=== PATIENT | male | born 1970 | race Caucasian/White ===

== ENCOUNTER 2018-11-17 20:32 | Emergency (ER) | payer SELFPAY ==
[2018-11-17] MEDS ORDERED: NORMAL SALINE 1000 ML 1,000 ML IV ONE ×2 (21:14)
--- NOTE | 2018-11-17 21:16 | ER Document Report ---
ED General - General Chief Complaint: General Weakness Stated Complaint: WEAKNESS Time Seen by Provider: 11/17/18 21:05 Primary Care Provider: ZACHARY [facility] [Provider Group] - Follow up in 1 week [facility] [Provider Group] - Follow up in 1 week Notes: Patient is a 48-year-old male that comes to the emergency department by EMS for chief complaint of leg weakness. He states his legs have been feeling weak for the past 3 months, he is also starting to develop numbness in both legs slowly and progressively, however tonight he states that when his legs gave out he fell and landed on both knees, he states he was unable to get up for about 3 hours until his family member came home and called EMS. Other than leg weakness and pain in his legs patient denies any other symptoms including dizziness, chest pain, shortness of breath, nausea vomiting, fever/chills, back pain, incontinence. Past medical history of morbid obesity, hypertension, type 2 diabetes. He states he takes his metoprolol tartrate 50 mg "sparingly" and the rest of his medication sparingly as well because even the medications are affordable he cannot afford his doctor's appointments. TRAVEL OUTSIDE OF THE [place] IN LAST 30 DAYS: No - Related Data Allergies/Adverse Reactions: No Known Allergies Allergy (Unverified 05/03/13 00:22) Past Medical History - General Information source: Patient - Social History Smoking Status: Never Smoker Frequency of alcohol use: None Drug Abuse: None Lives with: Family Family History: None - Past Medical History Cardiac Medical History: Reports: Hx Hypertension Pulmonary Medical History: Denies: Hx Tuberculosis Endocrine Medical History: Reports: Hx Diabetes Mellitus Type 2 Past Surgical History: Reports: Hx Kidney (Renal Surgery) - stent to left kidney, Hx Orthopedic Surgery - right fingers - Immunizations Hx Diphtheria, Pertussis, Tetanus Vaccination: Yes Review of Systems - Review of Systems Constitutional: See HPI EENT: No symptoms reported Cardiovascular: No symptoms reported Respiratory: No symptoms reported Gastrointestinal: No symptoms reported Genitourinary: No symptoms reported Male Genitourinary: No symptoms reported Musculoskeletal: See HPI Skin: See HPI Hematologic/Lymphatic: No symptoms reported Neurological/Psychological: No symptoms reported Physical Exam - Vital signs Vitals: Resp BP Pulse Ox 14 160/119 H 94 11/17/18 20:48 11/17/18 20:48 11/17/18 20:48 - Notes Notes: GENERAL: Alert, interacts well. No acute distress. HEAD: Normocephalic, atraumatic. EYES: Pupils equal, round, and reactive to light. Extraocular movements intact. ENT: Oral mucosa moist, tongue midline. Oropharynx unremarkable. Airway patent. Nares patent, no nasal septal hematoma, TM's intact. NECK: Full range of motion. Supple. Trachea midline. LUNGS: Clear to auscultation bilaterally, no wheezes, rales, or rhonchi. No respiratory distress. HEART: Tachycardia, normal rhythm. No murmur ABDOMEN: Soft, non-tender. Non-distended. Bowel sounds present in all 4 quadrants. GENITOURINARY: Deferred EXTREMITIES: Moves all 4 extremities spontaneously. Small contusions over anterior proximal tibial areas and patellar areas. No open wounds. No edema, normal radial and dorsalis pedis pulses bilaterally. No cyanosis. BACK: no cervical, thoracic, lumbar midline tenderness. No saddle anesthesia, normal distal neurovascular exam. Moves all extremities in full range of motion. NEUROLOGICAL: Alert and oriented x3. Normal speech. Cranial nerves II through XII grossly intact. PSYCH: Normal affect, normal mood. SKIN: Warm, dry, normal turgor. Candidal rash over the left axillary area without induration, fluctuance, or evidence of secondary cellulitis. Course - Re-evaluation Re-evalutation: Patient is tachycardic and somewhat hypotensive but he is well-appearing. He does have bruises over both knees but he can ambulate. His lower extremity exam is unremarkable otherwise. His physical exam is unremarkable otherwise. He declines anything for pain. CBC unremarkable, chemistry shows hyperglycemia without acidosis, creatinine is borderline. Patient given 2 boluses of IV fluids. Afterwards his tachycardia did resolve. Given insulin and this is trending downwards. Urinalysis is questionable but patient has no urinary symptoms, this was cultured. Patient does have Tammi over the left axillary area, given Diflucan. Discussed with patient in detail. Patient states that he does have some medications, states he needs better primary care follow-up but he can afford, states he is having difficulty caring for his father and affording his medications because he was declined insurance. manager legal consult was placed, discussed this, discussed importance of his medications, patient states when he takes his medications his blood pressure and his blood sugar are both controlled. Patient has no headache or chest pain. He requests a walker while he is getting over the knee contusions. No fracture on x-ray. I did discuss incidental x-ray findings as well. Discussed follow-up and return precautions. Patient states satisfaction and agreement. - Vital Signs Vital signs: Temp Pulse Resp BP Pulse Ox 98.8 F 19 175/112 H 95 11/18/18 06:32 11/18/18 06:32 11/18/18 06:32 11/18/18 06:32 - Laboratory Result Diagrams: 11/17/18 21:04 11/17/18 21:04 Laboratory results interpreted by me: 11/17/18 11/17/18 11/17/18 21:04 21:04 21:04 Seg Neutrophils % 79.2 H Sodium 131.7 L Chloride 96 L Creatinine 1.31 H Est GFR (Non-Af Amer) 59 L Glucose 582 H* POC Glucose AST 77 H ALT 85 H Creatine Kinase 189 H Urine Protein Urine Glucose (UA) Urine Blood Ur Leukocyte Esterase 11/17/18 11/17/18 23:10 23:25 Seg Neutrophils % Sodium Chloride Creatinine Est GFR (Non-Af Amer) Glucose POC Glucose 397 H AST ALT Creatine Kinase Urine Protein >=500 H Urine Glucose (UA) >=500 H Urine Blood SMALL H Ur Leukocyte Esterase SMALL H Discharge - Discharge Clinical Impression: Hyperglycemia, Essential hypertension, Weakness, Tammi infection Knee injury Qualifiers: Encounter type: initial encounter Laterality: unspecified laterality Qualified Code(s): S89.90XA - Unspecified injury of unspecified lower leg, initial encounter Condition: Stable Disposition: HOME, SELF-CARE Additional Instructions: Resume your daily medications for blood pressure and diabetes. The x-ray shows an incidental fibroma but no fracture or concerning finding. Use the topical cream for the left armpit area to treat the fungal infection. Call the primary care listed for close followup for more management. We have placed a case management consult, they will be following up with you for your difficulty with prescriptions, primary care follow-up, etc. Return if you worsen including fever, spreading redness of the armpit, severe swelling or pain of the knees, vomiting, or any other concerning or worsening symptoms. Prescriptions: Clotrimazole [Antifungal] 30 gm TP ASDIR PRN #1 cream..g. PRN Reason: Walker [Folding Walker] 1 each MC ASDIR PRN #1 each PRN Reason: Referrals: [facility] [Provider Group] - Follow up in 1 week [facility] [Provider Group] - Follow up in 1 week
[2018-11-17 21:22] LABS: ABSOLUTE EOSINOPHILS # (AUTO) 0.1 10^3/uL (0.0-0.6); ABSOLUTE LYMPHOCYTES (AUTO) 1.2 10^3/uL (0.5-4.7); ABSOLUTE MONOCYTES (AUTO) 0.4 10^3/uL (0.1-1.4); ABSOLUTE NEUT (AUTO) 6.7 10^3/uL (1.7-8.2); BASOPHILS % (AUTO) 0.3 % (0-2); EOSINOPHILS % (AUTO) 1.3 % (0-6); HEMATOCRIT 46.8 % (37.9-51.0); HEMOGLOBIN 15.9 g/dL (13.5-17.0); LYMPHOCYTES % (AUTO) 13.9 % (13-45); MEAN CORPUSCULAR HEMOGLOBIN 29.8 pg (27.0-33.4); MEAN CORPUSCULAR VOLUME 88 fl (80-97); MONOCYTES % (AUTO) 5.3 % (3-13); PLATELET COUNT 204 10^3/uL (150-450); RED BLOOD COUNT 5.35 10^6/uL (4.35-5.55); SEGMENTED NEUTROPHILS % (AUTO) 79.2 % (42-78); TOTAL CELLS COUNTED % (AUTO) 100 %; WHITE BLOOD COUNT 8.4 10^3/uL (4.0-10.5)
[2018-11-17 21:34] LABS: ALANINE AMINOTRANSFERASE 85 U/L (21-72); ALBUMIN 3.7 g/dL (3.5-5.0); ALKALINE PHOSPHATASE 86 U/L (38-126); ANION GAP 12 (5-19); ASPARTATE AMINO TRANSFERASE 77 U/L (17-59); BILIRUBIN,DIRECT 0.3 mg/dL (0.0-0.4); BILIRUBIN,TOTAL 0.7 mg/dL (0.2-1.3); BLOOD UREA NITROGEN 15 mg/dL (7-20); CALCIUM 9.5 mg/dL (8.4-10.2); CARBON DIOXIDE 24 mmol/L (22-30); CHLORIDE 96 mmol/L (98-107); POTASSIUM 3.8 mmol/L (3.6-5.0); SODIUM 131.7 mmol/L (137-145)
[2018-11-17 21:41] LABS: GLUCOSE 582 mg/dL (75-110)
--- NOTE | 2018-11-17 22:26 | EKG REPORT ---
SEVERITY:- ABNORMAL ECG - SINUS TACHYCARDIA RBBB AND LAFB PROBABLE LEFT VENTRICULAR HYPERTROPHY : Confirmed by: Jose Farias 17-Nov-2018 22:25:13
--- NOTE | 2018-11-17 22:30 | RADIOLOGY REPORT (SQ) ---
EXAM DESCRIPTION: RadLex: XR KNEE 1-2 VIEWS BILATERAL Views: 2 views of each knee CLINICAL HISTORY: 48 years Male, fall, bruising, pain COMPARISON: None. FINDINGS: Left: Negative for acute fracture, dislocation, or radiopaque foreign body. Right: Negative for acute fracture, dislocation, or radiopaque foreign body. In the posterior medial cortex of the distal femoral shaft there is an area of cortical thickening/sclerosis, likely old nonossifying fibroma. No associated periosteal reaction or other suspicious malignant features. IMPRESSION 1. No acute fracture or dislocation 2. 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
[2018-11-17] MEDS ORDERED: INSULIN REG, HUMAN 100 UNIT/ML 3 ML VIAL (PYX) SUBCUT ONE (23:26)
[2018-11-17 23:32] LABS: APPEARANCE,URINE SLIGHTLY-CLOUDY; BILIRUBIN,URINE NEGATIVE (NEGATIVE); COLOR,URINE YELLOW; GLUCOSE, URINE >=500 mg/dL (NEGATIVE); KETONES,URINE NEGATIVE (NEGATIVE); LEUKOCYTE ESTERASE,URINE SMALL (NEGATIVE); NITRITE,URINE NEGATIVE (NEGATIVE); PROTEIN,URINE >=500 mg/dL (NEGATIVE); URINE SPECIFIC GRAVITY 1.026; UROBILINOGEN,URINE NEGATIVE mg/dL (<2.0)
[2018-11-18] MEDS ORDERED: FLUCONAZOLE 100 MG TABLET PO ONE (01:24)
[2018-11-18 06:46] VITALS: BP 175/112
== END 2018-11-18 06:46 | disposition home or self-care (01) ==
LOC: ER 20:32
DX: R53.1 Weakness (principal); S80.02XA Contusion of left knee, initial encounter; S80.01XA Contusion of right knee, initial encounter; W19.XXXA Unspecified fall, initial encounter; E11.65 Type 2 diabetes mellitus with hyperglycemia; B37.2 Candidiasis of skin and nail; R20.0 Anesthesia of skin; M79.604 Pain in right leg; M79.605 Pain in left leg; I10 Essential (primary) hypertension; R00.0 Tachycardia, unspecified
CPT/HCPCS: 93005; 99285; 96360; 96361; 36415; 87086; 82962; 82550; 85025; 80053; 81001; 73560; 93010; J1815; J7030

== ENCOUNTER → 2018-12-12 | Outpatient (CLI) | payer OTHER ==
[2018-12-12 12:05] LABS: ALANINE AMINOTRANSFERASE 94 U/L (21-72); ALBUMIN 4.1 g/dL (3.5-5.0); ALKALINE PHOSPHATASE 72 U/L (38-126); ANION GAP 11 (5-19); ASPARTATE AMINO TRANSFERASE 88 U/L (17-59); BILIRUBIN,DIRECT 0.3 mg/dL (0.0-0.4); BILIRUBIN,TOTAL 0.8 mg/dL (0.2-1.3); BLOOD UREA NITROGEN 16 mg/dL (7-20); CARBON DIOXIDE 25 mmol/L (22-30); CHLORIDE 100 mmol/L (98-107); CHOLESTEROL 223.94 mg/dL (0-200); GLUCOSE 286 mg/dL (75-110); POTASSIUM 4.5 mmol/L (3.6-5.0); TOTAL PROTEIN 7.6 g/dL (6.3-8.2); TRIGLYCERIDES 190 mg/dL (<150)
[2018-12-12 12:16] LABS: DIRECT LDL 176 mg/dL (<100)
== END ==
LOC: CCC 11:17
DX: E11.8 Type 2 diabetes mellitus with unspecified complications (principal); I10 Essential (primary) hypertension
CPT/HCPCS: 36415; 80053; 80061; 83036; 84443

== ENCOUNTER → 2019-02-04 | Outpatient (CLI) | payer OTHER ==
[2019-02-05 10:36] LABS: HEPATITS B SURFACE ANTIGEN Negative (Negative)
[2019-02-05 12:52] LABS: HEPATITIS C VIRUS ANTIBODY 0.3 s/co ratio (0.0-0.9)
== END ==
LOC: CCC 12:05
DX: R94.5 Abnormal results of liver function studies (principal)
CPT/HCPCS: 36415; 80074; 82977

== ENCOUNTER → 2019-05-02 | Outpatient (CLI) | payer OTHER ==
--- NOTE | 2019-05-02 12:00 | RADIOLOGY REPORT (SQ) ---
EXAM DESCRIPTION: HAND RIGHT 3 VIEWS; KNEE RIGHT 2 VIEWS; KNEE LEFT 2 VIEWS COMPLETED DATE/TIME: 05/02/2019 11:42 am REASON FOR STUDY: MORBID OBESITY; MORBID OBESITY, KNEE PROBLEMS COMPARISON: None. FINDINGS: Two views right knee, weight-bearing: Chronic healed fibrous cortical defect. Otherwise normal. No acute or suspicious findings. Two views left knee, weight-bearing: Normal. Three views right hand: Normal bone density. Generally maintained joint spaces. No fracture or bon e lesion. Soft tissues intact. TECHNICAL DOCUMENTATION: JOB ID: [id number] Reading location - IP/workstation name: [email or web address]
--- NOTE | 2019-05-02 12:00 | RADIOLOGY REPORT (SQ) ---
EXAM DESCRIPTION: HAND RIGHT 3 VIEWS; KNEE RIGHT 2 VIEWS; KNEE LEFT 2 VIEWS COMPLETED DATE/TIME: 05/02/2019 11:42 am REASON FOR STUDY: MORBID OBESITY; MORBID OBESITY, KNEE PROBLEMS COMPARISON: None. FINDINGS: Two views right knee, weight-bearing: Chronic healed fibrous cortical defect. Otherwise normal. No acute or suspicious findings. Two views left knee, weight-bearing: Normal. Three views right hand: Normal bone density. Generally maintained joint spaces. No fracture or bon e lesion. Soft tissues intact. TECHNICAL DOCUMENTATION: JOB ID: [id number] Reading location - IP/workstation name: [email or web address]
--- NOTE | 2019-05-02 12:00 | RADIOLOGY REPORT (SQ) ---
EXAM DESCRIPTION: HAND RIGHT 3 VIEWS; KNEE RIGHT 2 VIEWS; KNEE LEFT 2 VIEWS COMPLETED DATE/TIME: 05/02/2019 11:42 am REASON FOR STUDY: MORBID OBESITY; MORBID OBESITY, KNEE PROBLEMS COMPARISON: None. FINDINGS: Two views right knee, weight-bearing: Chronic healed fibrous cortical defect. Otherwise normal. No acute or suspicious findings. Two views left knee, weight-bearing: Normal. Three views right hand: Normal bone density. Generally maintained joint spaces. No fracture or bon e lesion. Soft tissues intact. TECHNICAL DOCUMENTATION: JOB ID: [id number] Reading location - IP/workstation name: [email or web address]
== END ==
LOC: RAD 11:07
DX: E66.01 Morbid (severe) obesity due to excess calories (principal); M54.9 Dorsalgia, unspecified; E11.9 Type 2 diabetes mellitus without complications; N28.9 Disorder of kidney and ureter, unspecified; R35.0 Frequency of micturition

== ENCOUNTER → 2019-12-09 | Outpatient (CLI) | payer OTHER ==
[2019-12-09 10:59] LABS: ABSOLUTE BASOPHILS # (AUTO) 0.1 10^3/uL (0.0-0.2); ABSOLUTE EOSINOPHILS # (AUTO) 0.2 10^3/uL (0.0-0.6); ABSOLUTE LYMPHOCYTES (AUTO) 1.8 10^3/uL (0.5-4.7); ABSOLUTE MONOCYTES (AUTO) 0.4 10^3/uL (0.1-1.4); ABSOLUTE NEUT (AUTO) 6.2 10^3/uL (1.7-8.2); BASOPHILS % (AUTO) 0.7 % (0-2); EOSINOPHILS % (AUTO) 2.6 % (0-6); HEMATOCRIT 45.4 % (37.9-51.0); HEMOGLOBIN 15.2 g/dL (13.5-17.0); LYMPHOCYTES % (AUTO) 20.4 % (13-45); MEAN CORPUSCULAR HEMOGLOBIN 30.2 pg (27.0-33.4); MEAN CORPUSCULAR HGB CONC 33.5 g/dL (32.0-36.0); MEAN CORPUSCULAR VOLUME 90 fl (80-97); MONOCYTES % (AUTO) 5.1 % (3-13); PLATELET COUNT 244 10^3/uL (150-450); RED BLOOD COUNT 5.02 10^6/uL (4.35-5.55); RED CELL DISTRIBUTION WIDTH 13.3 % (11.5-14.0); SEGMENTED NEUTROPHILS % (AUTO) 71.2 % (42-78); TOTAL CELLS COUNTED % (AUTO) 100 %; WHITE BLOOD COUNT 8.8 10^3/uL (4.0-10.5)
[2019-12-09 11:17] LABS: ALBUMIN 4.5 g/dL (3.5-5.0); ALKALINE PHOSPHATASE 61 U/L (38-126); ANION GAP 11 (5-19); ASPARTATE AMINO TRANSFERASE 29 U/L (17-59); BILIRUBIN,TOTAL 0.5 mg/dL (0.2-1.3); BLOOD UREA NITROGEN 32 mg/dL (7-20); CALCIUM 9.9 mg/dL (8.4-10.2); CARBON DIOXIDE 24 mmol/L (22-30); CHLORIDE 103 mmol/L (98-107); CHOLESTEROL 137.68 mg/dL (0-200); GLUCOSE 110 mg/dL (75-110); TRIGLYCERIDES 104 mg/dL (<150)
[2019-12-09 11:28] LABS: DIRECT LDL 77 mg/dL (<100)
--- NOTE | 2019-12-10 09:19 | EKG REPORT ---
SEVERITY:- ABNORMAL ECG - SINUS RHYTHM RIGHT BUNDLE BRANCH BLOCK : Confirmed by: Jose Farias 10-Dec-2019 09:17:48
== END ==
LOC: CCC 09:41
DX: E11.8 Type 2 diabetes mellitus with unspecified complications (principal); I10 Essential (primary) hypertension; R94.5 Abnormal results of liver function studies; E66.01 Morbid (severe) obesity due to excess calories; Z86.79 Personal history of other diseases of the circulatory system
CPT/HCPCS: 36415; 80053; 80061; 82977; 83036; 84443; 85025; 93005; 93010

== ENCOUNTER → 2020-01-20 | Outpatient (CLI) | payer OTHER ==
[2020-01-20 13:23] LABS: ANION GAP 13 (5-19); BLOOD UREA NITROGEN 35 mg/dL (7-20); CARBON DIOXIDE 20 mmol/L (22-30); CHLORIDE 101 mmol/L (98-107); GLUCOSE 130 mg/dL (75-110); POTASSIUM 5.2 mmol/L (3.6-5.0)
== END ==
LOC: CCC 11:55
PROVIDERS: ATTEND Internal Medicine
DX: E11.22 Type 2 diabetes mellitus with diabetic chronic kidney disease (principal); N18.3 Chronic kidney disease, stage 3 (moderate)
CPT/HCPCS: 36415; 80048

== ENCOUNTER 2020-03-09 23:51 | Emergency (ER) | payer SELFPAY ==
--- NOTE | 2020-03-10 00:19 | ER Document Report ---
ED Medical Screen (RME) - General Stated Complaint: RIGHT HAND SWELLING AND PAINFUL Time Seen by Provider: 03/10/20 00:17 Primary Care Provider: ZACHARY HUSSEIN [Primary Care Provider] - Follow up as needed Mode of Arrival: Ambulatory Information source: Patient Notes: Patient is a morbidly obese 49-year-old male coming in today with atraumatic right hand and wrist pain and swelling that goes all the way up to his elbow. No chest pain or shortness of breath. General exam: No acute distress, nontoxic Cardio regular rate and rhythm Pulmonary no acute distress Abdomen unremarkable Musculoskeletal moderate soft tissue swelling of the right hand and wrist with diffuse tenderness. No point bony tenderness. Distal neurovascular exam is intact I have greeted and performed a rapid initial assessment of this patient. A comprehensive ED assessment and evaluation of the patient, analysis of test results and completion of the medical decision making process will be conducted by additional ED providers. TRAVEL OUTSIDE OF THE [place] IN LAST 30 DAYS: No - Related Data Allergies/Adverse Reactions: No Known Allergies Allergy (Unverified 05/03/13 00:22) Past Medical History - Past Medical History Cardiac Medical History: Reports: Hx Hypertension Pulmonary Medical History: Denies: Hx Tuberculosis Endocrine Medical History: Reports: Hx Diabetes Mellitus Type 2 Renal/ Medical History: Denies: Hx Peritoneal Dialysis Musculoskeltal Medical History: Reports Hx Arthritis Past Surgical History: Reports: Hx Kidney (Renal Surgery) - stent to left kidney, Hx Orthopedic Surgery - right fingers - Immunizations Hx Diphtheria, Pertussis, Tetanus Vaccination: Yes Physical Exam - Vital signs Vitals: Temp Pulse Resp BP Pulse Ox 98.0 F 88 18 151/108 H 94 03/10/20 00:04 03/10/20 00:04 03/10/20 00:04 03/10/20 00:04 03/10/20 00:04 Course - Vital Signs Vital signs: Temp Pulse Resp BP Pulse Ox 98.0 F 88 18 151/108 H 94 03/10/20 00:04 03/10/20 00:04 03/10/20 00:04 03/10/20 00:04 03/10/20 00:04 Doctor's Discharge - Discharge Referrals: ZACHARY HUSSEIN [Primary Care Provider] - Follow up as needed
[2020-03-10 00:57] LABS: ABSOLUTE BASOPHILS # (AUTO) 0.1 10^3/uL (0.0-0.2); ABSOLUTE EOSINOPHILS # (AUTO) 0.2 10^3/uL (0.0-0.6); ABSOLUTE LYMPHOCYTES (AUTO) 1.7 10^3/uL (0.5-4.7); ABSOLUTE MONOCYTES (AUTO) 0.5 10^3/uL (0.1-1.4); ABSOLUTE NEUT (AUTO) 8.1 10^3/uL (1.7-8.2); BASOPHILS % (AUTO) 0.8 % (0-2); EOSINOPHILS % (AUTO) 1.9 % (0-6); HEMATOCRIT 44.7 % (37.9-51.0); HEMOGLOBIN 14.9 g/dL (13.5-17.0); LYMPHOCYTES % (AUTO) 15.6 % (13-45); MEAN CORPUSCULAR HEMOGLOBIN 29.3 pg (27.0-33.4); MEAN CORPUSCULAR HGB CONC 33.4 g/dL (32.0-36.0); MEAN CORPUSCULAR VOLUME 88 fl (80-97); MONOCYTES % (AUTO) 5.1 % (3-13); PLATELET COUNT 246 10^3/uL (150-450); RED BLOOD COUNT 5.09 10^6/uL (4.35-5.55); RED CELL DISTRIBUTION WIDTH 13.1 % (11.5-14.0); SEGMENTED NEUTROPHILS % (AUTO) 76.6 % (42-78); TOTAL CELLS COUNTED % (AUTO) 100 %; WHITE BLOOD COUNT 10.6 10^3/uL (4.0-10.5)
--- NOTE | 2020-03-10 01:24 | RADIOLOGY REPORT (SQ) ---
Right hand x-ray three views on 03/10/2020 at 12:47 AM CLINICAL INDICATION: Right hand pain and swelling COMPARISON: None FINDINGS: Bony protuberance along the volar aspect of the distal fifth metacarpal is likely related to osteochondroma. Likely degenerative cystic change is noted in the lunate. There are no fractures. Visualized joints are well aligned. No other bony abnormality is noted. IMPRESSION: No acute abnormality.
--- NOTE | 2020-03-10 01:25 | RADIOLOGY REPORT (SQ) ---
CLINICAL INDICATION: swelling. . TECHNIQUE: 3 view(s) were obtained of the right wrist. COMPARISON: None. FINDINGS: No acute displaced fracture is identified of the wrist. Alignment appears anatomic. Joint spaces are within normal limits for age. Surrounding soft tissues are unremarkable. IMPRESSION: No evidence of acute displaced fracture of the wrist. Hand dictated separately
[2020-03-10 01:37] LABS: ALBUMIN 4.3 g/dL (3.5-5.0); ALKALINE PHOSPHATASE 74 U/L (38-126); ANION GAP 12 (5-19); ASPARTATE AMINO TRANSFERASE 25 U/L (17-59); BILIRUBIN,DIRECT 0.3 mg/dL (0.0-0.4); BILIRUBIN,TOTAL 0.5 mg/dL (0.2-1.3); BLOOD UREA NITROGEN 37 mg/dL (7-20); CALCIUM 9.8 mg/dL (8.4-10.2); CARBON DIOXIDE 21 mmol/L (22-30); CHLORIDE 103 mmol/L (98-107); GLUCOSE 160 mg/dL (75-110); POTASSIUM 4.6 mmol/L (3.6-5.0); TOTAL PROTEIN 7.4 g/dL (6.3-8.2)
[2020-03-10] MEDS ORDERED: HYDROCODONE/ACETAMINOPHEN 5-325 MG (6 TAB/ER DISP) PO PRN (04:13)
[2020-03-10] MEDS ORDERED: DEXAMETHASONE 4 MG TABLET PO ONE (04:13)
--- NOTE | 2020-03-10 04:25 | ER Document Report ---
ED Hand/Wrist Injury - General Chief Complaint: Hand Pain Stated Complaint: RIGHT HAND SWELLING AND PAINFUL Time Seen by Provider: 03/10/20 00:17 Primary Care Provider: [facility] [Primary Care Provider] - Follow up as needed Mode of Arrival: Ambulatory Notes: CHIEF COMPLAINT: Right wrist pain for 1 day HPI: 49-year-old male with a history of insulin-dependent diabetes chronic kidney insufficiency presenting for pain and swelling to the right wrist and forearm for 1 day. States he woke up with the pain and swelling. No definite fevers. Complains of some numbness over the dorsal aspect of the hand. 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 Patient has taken no medications for his symptoms at this time. Denies other complaints ROS: See HPI - all other systems were reviewed and are otherwise negative Constitutional: no fever Eyes: no drainage, no blurred vision ENT: no runny nose, no sore throat Cardiovascular: no chest pain Resp: no SOB, no cough GI: no vomiting, no diarrhea, no abdominal pain : no dysuria Integumentary: no rash Allergy: no hives Musculoskeletal: + extremity pain or swelling Neurological: no numbness/tingling, no weakness MEDICATIONS: I agree with the patient medications as charted by the RN. ALLERGIES: I agree with the allergies as charted by the RN. PAST MEDICAL HISTORY/PAST SURGICAL HISTORY: Reviewed and agree as charted by RN. SOCIAL HISTORY: Reviewed and agree as charted by RN. FAMILY HISTORY: No significant familial comorbid conditions directly related to patient complaint EXAM: Reviewed vital signs as charted by RN. CONSTITUTIONAL: Alert and oriented and responds appropriately to questions. Well-appearing; well-nourished HEAD: Normocephalic; atraumatic EYES: PERRL; Conjunctivae clear, sclerae non-icteric ENT: normal nose; no rhinorrhea; moist mucous membranes NECK: Supple without meningismus CARD: symmetric distal pulses RESP: Normal chest excursion without splinting or tachypnea ABD/GI: non-distended. BACK: The back appears normal EXT: There is slight limited flexion extension of the right hand at the wrist secondary to complaints of pain at the wrist. Very slight soft tissue swelling over the dorsum of the hand and the right wrist without overlying erythema. There is no induration or fluctuance. There is mild tenderness on the dorsal aspect of the right forearm, no tenderness or soft tissue swelling circumferentially or on the volar aspect. Brachial radial and ulnar pulses are present in the right upper extremity. Sensation is intact in the fingertips with capillary refill less than 3 seconds. Subjectively decreased sensation over the MCP region of the second and fourth fingers. Patient is able to flex and extend the fingers fully SKIN: Normal color for age and race; warm; dry; good turgor; no acute lesions noted NEURO: Moves all extremities equally PSYCH: The patient's mood and manner are appropriate. Grooming and personal hygiene are appropriate. MDM: 49-year-old male presenting with pain and swelling to the right forearm and primarily to the wrist. I do not suspect DVT at this time has no tenderness on the volar aspect. There is no overlying erythema suggesting a cellulitis at this time. He is not febrile. Screening labs do not show acute emergent abnormalities his creatinine at 1.99 is within his baseline. Will place patient in a cock-up splint for comfort, short course of Decadron as patient cannot take anti-inflammatories, ice elevate follow-up orthopedics. TRAVEL OUTSIDE OF THE [place] IN LAST 30 DAYS: No - Related Data Allergies/Adverse Reactions: No Known Allergies Allergy (Unverified 05/03/13 00:22) Home Medications: lantus, atorvastatin,metoprolol,lisinopril/HCTZ, low dose asa,. amilodipine Past Medical History - General Information source: Patient - Social History Smoking Status: Never Smoker Family History: None - Past Medical History Cardiac Medical History: Reports: Hx Hypertension Pulmonary Medical History: Denies: Hx Tuberculosis Endocrine Medical History: Reports: Hx Diabetes Mellitus Type 2 Renal/ Medical History: Denies: Hx Peritoneal Dialysis Musculoskeletal Medical History: Reports Hx Arthritis Past Surgical History: Reports: Hx Kidney (Renal Surgery) - stent to left kidney, Hx Orthopedic Surgery - right fingers - Immunizations Hx Diphtheria, Pertussis, Tetanus Vaccination: Yes Physical Exam - Vital signs Vitals: Temp Pulse Resp BP Pulse Ox 98.0 F 88 18 151/108 H 94 03/10/20 00:04 03/10/20 00:04 03/10/20 00:04 03/10/20 00:04 03/10/20 00:04 Course - Vital Signs Vital signs: Temp Pulse Resp BP Pulse Ox 98.0 F 85 18 148/91 H 96 03/10/20 04:26 03/10/20 04:26 03/10/20 00:04 03/10/20 04:26 03/10/20 04:26 - Laboratory Result Diagrams: 03/10/20 00:40 03/10/20 00:40 Laboratory results interpreted by me: 03/10/20 03/10/20 00:40 00:40 WBC 10.6 H Sodium 136.0 L Carbon Dioxide 21 L BUN 37 H Creatinine 1.99 H Est GFR ( Amer) 44 L Est GFR (MDRD) Non-Af 36 L Glucose 160 H Procedures - Immobilization Right Wrist Time completed: 04:25 Pre-Proc Neuro Vasc Exam: Normal Immobilizer type: Cock-up Performed by: PCT Post-Proc Neuro Vasc Exam: Normal, Unchanged from pre-exam Alignment checked and good: Yes Discharge - Discharge Clinical Impression: Wrist pain, right Condition: Stable Disposition: HOME, SELF-CARE Additional Instructions: Take the medications as prescribed, no driving if taking narcotics for pain. Ice the wrist 3-4 times daily for 5 to 10 minutes at a time do not place ice directly on the skin. Use the wrist splint for the next 3 to 5 days for comfort. Follow-up closely with orthopedics for further evaluation and treatment call for appointment Prescriptions: Dexamethasone [Decadron 4 Mg Tablet] 4 mg PO DAILY #7 tablet Hydrocodone/Acetaminophen [[place] 5-325 mg Tablet] 1 tab PO Q4 PRN #15 tablet PRN Reason: Referrals: [facility] [Primary [facility] Provider] - Follow up as needed ANDRESSA HUTCHINSON DO [ACTIVE STAFF] - Follow up as needed
[2020-03-10 04:29] VITALS: BP 148/91
== END 2020-03-10 05:04 | disposition home or self-care (01) ==
LOC: ER 23:51
DX: M79.641 Pain in right hand (principal); E11.9 Type 2 diabetes mellitus without complications; I10 Essential (primary) hypertension; N28.9 Disorder of kidney and ureter, unspecified; Z79.4 Long term (current) use of insulin
CPT/HCPCS: 29125; 99284; 36415; 85025; 80053; 73130; 73110; J8540

== ENCOUNTER → 2020-04-02 | Outpatient (CLI) | payer OTHER ==
[2020-04-02 11:36] LABS: ALBUMIN 4.6 g/dL (3.5-5.0); POTASSIUM 5.1 mmol/L (3.6-5.0)
== END ==
LOC: CCC 09:57
DX: N18.30 Chronic kidney disease, stage 3 unspecified (principal)
CPT/HCPCS: 36415; 82040; 82306; 83735; 84132; 84156